=== PATIENT | male | born 1965 | race Caucasian/White ===

== ENCOUNTER 2022-06-11 06:16 | Emergency (ER) | payer BC ==
[~2022-06-11] VITALS: Ht 198.1 cm; Wt 129.0 kg
[2022-06-11 06:35] VITALS: BP 165/109
[2022-06-11] MEDS ORDERED: ACETAMINOPHEN 325MG TABLET PO ONE (07:00)
[2022-06-11 09:23] LABS: CLARITY URINE CLEAR (CLEAR); COLOR URINE YELLOW (YELLOW); KETONES URINE TRACE (NEGATIVE); LEUKOCYTE ESTERASE URINE NEGATIVE (NEGATIVE); NITRITE URINE NEGATIVE (NEGATIVE); OCCULT BLOOD URINE 1+ (NEGATIVE); PROTEIN URINE NEGATIVE (NEGATIVE); SPECIFIC GRAVITY URINE 1.024 (1.005-1.030); UROBILINOGEN URINE 0.2 E.U./dL (0.2-1.0)
[2022-06-11] MEDS ORDERED: TOPUD PO ×2 (09:35)
[2022-06-11] MEDS ORDERED: IBUP-2028 PO (09:36)
[2022-06-11] MEDS ORDERED: T3 PO (09:36)
== END 2022-06-11 09:47 | disposition home or self-care (01) ==
LOC: ER 06:16
DX: M25.512 Pain in left shoulder (principal); M25.522 Pain in left elbow; N20.0 Calculus of kidney; I10 Essential (primary) hypertension; W01.0XXA Fall on same level from slipping, tripping and stumbling without subsequent striking against object, initial encounter; Y93.89 Activity, other specified; Y92.018 Other place in single-family (private) house as the place of occurrence of the external cause
CPT/HCPCS: 71101; 73080; 74176; 81003; 99285